=== PATIENT | female | born 1995 | race Hispanic/Latino ===

== ENCOUNTER 2018-04-22 14:14 | Inpatient (IN) | payer OTHER ==
[2018-04-22 15:56] LABS: AMPHETAMINES LEVEL URINE NEGATIVE (NEGATIVE); BARBITURATES URINE NEGATIVE (NEGATIVE); BENZODIAZEPINES URINE NEGATIVE (NEGATIVE); CANNABINOIDS URINE NEGATIVE (NEGATIVE); COCAINE METABOLITE URINE NEGATIVE (NEGATIVE); METHADONE URINE NEGATIVE (NEGATIVE); OPIATES URINE NEGATIVE (NEGATIVE); PHENCYCLIDINE URINE NEGATIVE (NEGATIVE)
[2018-04-22 16:06] LABS: HEMATOCRIT 39.8 % (36.0-47.0); MEAN CORPUSCULAR HEMOGLOBIN 30.6 pg (27.0-33.0); MEAN CORPUSCULAR HGB CONC 35.2 g/dl (32.0-36.5); MEAN CORPUSCULAR VOLUME 86.9 fl (80.0-96.0); PLATELET COUNT, AUTOMATED 335 10^3/uL (150-450); RED BLOOD COUNT 4.58 10^6/uL (4.00-5.40); RED CELL DISTRIBUTION WIDTH 12.6 % (11.5-14.5)
[2018-04-22 16:17] LABS: CONTROL LINE HCG INT CTR LINE PRESENT; HCG, SERUM QUALITATIVE NEGATIVE (NEGATIVE)
[2018-04-22 16:32] LABS: ALBUMIN 3.8 GM/DL (3.2-5.2); ALBUMIN/GLOBULIN RATIO 0.97 (1.00-1.93); ALKALINE PHOSPHATASE 143 U/L (45-117); ALT/SGPT 29 U/L (12-78); ANION GAP 9 MEQ/L (8-16); AST/SGOT 21 U/L (7-37); BILIRUBIN,DIRECT < 0.1 MG/DL (0.0-0.2); BILIRUBIN,TOTAL 0.2 MG/DL (0.2-1.0); BLOOD UREA NITROGEN 6 MG/DL (7-18); CALCIUM LEVEL 8.4 MG/DL (8.5-10.1); CARBON DIOXIDE LEVEL 24 MEQ/L (21-32); CHLORIDE LEVEL 110 MEQ/L (98-107); CREATININE FOR GFR 0.59 MG/DL (0.55-1.30); GLOMERULAR FILTRATION RATE > 60.0 (>60); GLUCOSE, FASTING 89 MG/DL (70-100); POTASSIUM SERUM 3.7 MEQ/L (3.5-5.1); SALICYLATE LEVEL < 1.7 MG/DL (5.0-30.0); SODIUM LEVEL 143 MEQ/L (136-145); TOTAL PROTEIN 7.7 GM/DL (6.4-8.2)
[2018-04-22 16:34] LABS: ACETAMINOPHEN LEVEL < 2.0 UG/ML (10.0-30.0); ETHYL ALCOHOL (ETHANOL) < 0.003 % (0.000-0.010)
[2018-04-22] MEDS ORDERED: ACETAMINOPHEN TAB 650MG DOSE (2X325MG) PO (17:00)
[2018-04-22] MEDS ORDERED: MAALOX 30 ML SUSP *UDC PO (17:00)
[2018-04-22] MEDS ORDERED: traZODone 50 MG TAB PO (17:00)
[2018-04-22] MEDS ORDERED: MOM 30ML SUSPENSION UDC PO (17:00)
[2018-04-23] MEDS: SERTRALINE HCL 50 MG TAB PO (08:42)
[2018-04-23] MEDS ORDERED: hydrOXYzine 25 MG TAB PO (14:00)
[2018-04-23] MEDS: NALTREXONE 50 MG TAB PO (14:14)
[2018-04-24] MEDS: NALTREXONE 50 MG TAB PO (09:20)
[2018-04-24] MEDS: SERTRALINE 100 MG TAB PO (21:14)
[2018-04-25] MEDS: NALTREXONE 50 MG TAB PO (08:31)
[2018-04-25] MEDS ORDERED: ONDANSETRON 4 MG TAB (S0181) PO (09:00)
[2018-04-25] MEDS: SERTRALINE 100 MG TAB PO (20:51)
[2018-04-26] MEDS: NALTREXONE 50 MG TAB PO (09:16)
[2018-04-26] MEDS: SERTRALINE 100 MG TAB PO (20:31)
[2018-04-27] MEDS: NALTREXONE 50 MG TAB PO (08:28)
[2018-04-27] MEDS: SERTRALINE 100 MG TAB PO (21:54)
== END 2018-04-28 07:45 | disposition home or self-care (01) | DRG 882 ==
LOC: M ED 14:14 → M ED INP 16:50 → M PSY 17:56
DX: F43.10 Post-traumatic stress disorder, unspecified (principal); F10.10 Alcohol abuse, uncomplicated; G47.00 Insomnia, unspecified; Z91.410 Personal history of adult physical and sexual abuse; Z79.899 Other long term (current) drug therapy

== ENCOUNTER 2019-02-22 12:25 | Outpatient (CLI) | payer OTHER ==
[~2019-02-22] VITALS: Ht 157.5 cm; Wt 70.7 kg
[~2019-02-22 12:25] MED LIST: ACET1TAB55 PO; HYDR-3363 PO; MELA3TAB49 PO; NALT50TA4 PO; SERT-138 PO; TRAZ1TAB10 PO; ZOFR4TAB14 PO; ZOLO50TA PO; zoloft PO
[2019-02-22] MEDS ORDERED: VITA100T59 PO (12:46)
[2019-02-22] MEDS ORDERED: ZOLO25TA PO (12:46)
[2019-02-22] MEDS ORDERED: PRENTAB9 PO (12:46)
[2019-02-22] MEDS ORDERED: FERR325T3 PO (12:46)
[2019-02-22] MEDS ORDERED: ZOFR4TAB16 PO (12:46)
[2019-02-22] MEDS ORDERED: ZOLO100T PO (12:47)
[2019-02-22 12:49] VITALS: BP 113/65
== END 2019-02-22 14:08 | disposition home or self-care (01) ==
LOC: M LDO 12:25
PROVIDERS: ATTEND Obstetrics & Gynecology
DX: O26.853 Spotting complicating pregnancy, third trimester (principal); O34.61 Maternal care for abnormality of vagina, first trimester; O47.03 False labor before 37 completed weeks of gestation, third trimester; Z3A.37 37 weeks gestation of pregnancy
CPT/HCPCS: 59025; G0378; G0463

== ENCOUNTER 2019-03-09 00:36 | Inpatient (IN) | payer OTHER ==
[~2019-03-09] VITALS: Ht 157.5 cm; Wt 70.9 kg
[2019-03-09] VITALS (38 sets, daily range): BP systolic 101–138; BP diastolic 55–85
[~2019-03-09 00:36] MED LIST changes: +FERR325T3 PO; +PRENTAB9 PO; +VITA100T59 PO; +ZOFR4TAB16 PO; +ZOLO100T PO; +ZOLO25TA PO
[2019-03-09] MEDS ORDERED: LACTATED RINGER'S 1000 ML IV STA (01:20)
[2019-03-09] MEDS ORDERED: PENICILLIN G POTASSIUM IV 5 MU in D5W MINI-BAG PLUS 100 ML IV STA (01:20)
[2019-03-09 01:46] LABS: HEMATOCRIT 38.5 % (36.0-47.0); HEMOGLOBIN 13.3 g/dl (12.0-15.5); MEAN CORPUSCULAR HEMOGLOBIN 30.9 pg (27.0-33.0); MEAN CORPUSCULAR HGB CONC 34.5 g/dl (32.0-36.5); MEAN CORPUSCULAR VOLUME 89.5 fl (80.0-96.0); PLATELET COUNT, AUTOMATED 247 10^3/uL (150-450); WHITE BLOOD COUNT 11.3 10^3/uL (4.0-10.0)
--- NOTE | 2019-03-09 01:47 | HPEPDOC ---
Obstetrical History & Physical General Date of Admission Mar 09, 2019 at 01:29 History of Present Illness 23 yo at 39+6 weeks gestation by LMP of [id number] c/w 8+6 week US on 018 presented to L&D with the complaint of regular, painful contractions that have been worsening over the last couple hours. She denies any vaginal bleeding or leakage of fluid. She endorses excellent movement. 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dr, 325 MG PO DAILY No.137/Iron/Folic Acd ( Vitamin Tablet) 1 Each Tablet, 1 TAB PO DAILY Sertraline Hcl (Zoloft) 100 Mg Tablet, 1 TAB PO DAILY Scheduled PRN Ondansetron HCl (Zofran) 4 Mg Tablet, 1 TAB PO Q6-8HP PRN for nausea/vomiting Physical Examination Physical Examination GENERAL: Alert and oriented times three. ABDOMEN: Gravid and non-tender to touch. FETUS: Is vertex (VTX) by sterile vaginal examination (SVE) EXTREMITIES: No edema. Laboratory Data 24H LABS Laboratory Tests 2 03/09/19 01:31: Serology Scanned Report Hepatitis B Testing Urine Culture: Contaminated Pertinent Laboratoy Data Blood Type: O+ RBC Antibody Screen: Negative HIV: Negative Hepatitis B: Negative Hepatitis C: Unknown Rapid Plasma Reagin: Nonreactive Rubella: Immune Varicella: Immune Chlamydia/Gonorrhea: Negative Group B Streptococcus: Positive Quad Screen Test: Negative Cystic Fibrosis: Negative Glucose Tolerance Test: 106 Anatomy Ultrasound Placenta Location: Anterior Normal Anatomy: Yes Placenta Previa: No Steroid Therapy Steroid Therapy: No Vaginal Examination Dilation: 3 cm Effacement: 90% Station: -2 Cervical Consistency: Soft Cervical Position: Posterior Presentation: Cephalic presentation Position: Vertex (occiput) Assessment Heart Rate (FHR): 150 Variability: Moderate Accelerations: Positive Decelerations: None Tocometer Contractions: Yes Duration: greater than 60 seconds Strength: palpated as moderate Assessment/Plan Assessment 23 yo at 39+6 weeks gestation presented to L&D in early labor. GBS positive. Plan Admit to L&D for expectant management of labor. Will augment as clinically indicated. Apply IV fluids. PCN for GBS prophylaxis. Clear liquid diet. IV analgesia PRN while in latent labor and epidural PRN when in active labor. Anticipate . DO NONA Yu CHRISTOPHER J. DO Mar 09, 2019 01:47
[2019-03-09] MEDS: PENICILLIN G POTASSIUM IV 2.5 MU in APPROPRIATE DILUENT 1 EA IV SCH ×4 (06:03→18:19)
--- NOTE | 2019-03-09 08:02 | IPNPDOC ---
Text Note Date of Service The patient was seen on 03/09/19. NOTE FHT Cat 1, reg painful ctx's Cx //-1/vtx well applied OK for epidural Sessions VS,Rai, I+O VSRai I+O Laboratory Tests 03/09/19 01:38 Red Blood Count 4.30, Mean Corpuscular Volume 89.5, Mean Corpuscular Hemoglobin 30.9, Mean Corpuscular Hemoglobin Concent 34.5, Red Cell Distribution Width 15.9 H Vital Signs Date Time Temp Pulse Resp B/P (MAP) Pulse Ox O2 Delivery O2 Flow Rate FiO2 03/09/19 07:17 97.5 86 18 118/59 (78) I&O- Last 24 Hours up to 6 AM 03/09/19 06:00 Intake Total 510 ml Output Total 125 ml Balance 385 ml SESSIONS,BRIAN Medley MD Mar 09, 2019 08:02
[2019-03-09] MEDS ORDERED: FENTANYL 2MCG/ML ROPIVACAINE 0.2% IN 0.9% NACL 100ML IVBAG As Ordered ONE (08:06)
[2019-03-09] MEDS ORDERED: LR 1,000 ML IV ONE (08:30)
[2019-03-09] MEDS ORDERED: SERTRALINE HCL 50 MG TAB PO SCH (09:00)
[2019-03-09] MEDS: FENTANYL/ROPIVACAINE/NACL BAG 100 ML EPIDURAL SCH ×2 (09:13→18:25)
[2019-03-09] MEDS: LR 1,000 ML IV SCH ×2 (09:44→14:20)
[2019-03-09] MEDS ORDERED: diphenhydrAMINE INJ 50MG/ML VIAL (J1200) IV PRN (09:45)
[2019-03-09] MEDS ORDERED: REFRIGERATOR IV KEYS XX PRN (09:45)
[2019-03-09] MEDS ORDERED: EPIDURAL COMMENT XX SCH (09:45)
[2019-03-09] MEDS ORDERED: ONDANSETRON 4MG/2ML VIAL (J2405) IV PRN (09:45)
[2019-03-09] MEDS ORDERED: LACTATED RINGER'S 1000 ML IV PRN (09:45)
[2019-03-09] MEDS ORDERED: ePHEDrine SULFATE 25 MG/5 ML(5MG/ML) SYRINGE IV PRN (09:45)
[2019-03-09] MEDS ORDERED: EPIDURAL/PCA KEYS XX PRN (09:45)
[2019-03-09] MEDS ORDERED: NALOXONE INJ 0.4 MG/1 ML VIAL (J2310) IV PRN (09:45)
--- NOTE | 2019-03-09 16:52 | IPNPDOC ---
Text Note Date of Service The patient was seen on 03/09/19. NOTE FHT Cat 1, reg ctx's. Received an epidural late AM and cx check by myself at ~1100 was 6 cm, at 1400 was 8 cm. Cx C/C/BBOW/AROM with clear fluid/now +1 station, ROSA Plan on passive descent for 45 min, then start pushing Sessions MD BURCIAGA,Rai, I+O VSRai I+O Laboratory Tests 03/09/19 01:38 Red Blood Count 4.30, Mean Corpuscular Volume 89.5, Mean Corpuscular Hemoglobin 30.9, Mean Corpuscular Hemoglobin Concent 34.5, Red Cell Distribution Width 15.9 H Vital Signs Date Time Temp Pulse Resp B/P (MAP) Pulse Ox O2 Delivery O2 Flow Rate FiO2 03/09/19 13:53 82 111/62 (78) 03/09/19 12:53 98.4 18 I&O- Last 24 Hours up to 6 AM 03/09/19 06:00 Intake Total 510 ml Output Total 125 ml Balance 385 ml MARY,BRIAN Medley MD Mar 09, 2019 16:52
[2019-03-09] MEDS ORDERED: OXYTOCIN 30 UNITS IN 0.9% NaCl 500ML IV BAG (J2590) As Ordered ONE (17:24)
[2019-03-09] MEDS ORDERED: OXYTOCIN DRIP 30 UNITS in APPROPRIATE DILUENT 1 EA IV SCH (20:27)
[2019-03-09] MEDS ORDERED: DIBUCAINE 1% OINTMENT 30GM TOP PRN (20:30)
[2019-03-09] MEDS ORDERED: ACETAMINOPHEN TAB 650MG DOSE (2X325MG) PO PRN (20:30)
[2019-03-09] MEDS ORDERED: RHOGAM 300 MCG (1500 IU) INJ (J2790) IM SCH (20:30)
[2019-03-09] MEDS ORDERED: METOCLOPRAMIDE INJ 10MG/2ML VIAL (J2765) IV PRN (20:30)
[2019-03-09] MEDS ORDERED: MEASLES,MUMPS,RUBELLA VACCINE INJ (MMR-II) (90707) SC SCH (20:30)
--- NOTE | 2019-03-09 20:39 | DNPDOC ---
[facility] Delivery Note Delivery Note DATE OF DELIVERY: [id number] PREDELIVERY DIAGNOSIS: 39 6/7 weeks' gestation and labor. POST DELIVERY DIAGNOSIS: Delivered. PROCEDURE: Spontaneous vaginal delivery CORRAL BOSS: Dr. Hernandez ANESTHESIA: epidural ESTIMATED BLOOD LOSS: 200 mL. FINDINGS: wt pending, male infant, Score 9/9, nuchal cord times 1, loose DELIVERY SUMMARY: Called to room after just over 2 hours pushing, +4, great effort. No delay of the vtx, del'd ROSA to LOT, nuchal easily reduced, no delay of either shoulder, vigorous baby to abd. Cord C/C by FOB. Cord blood. Placenta intact, fundus firm, pit going 999. No lacs to cx/per/vag. Uncomplicated. Ariana HERNANDEZ,BRIAN Medley MD Mar 09, 2019 20:39
[2019-03-09] MEDS: DOCUSATE SODIUM 100 MG CAP PO SCH (22:15)
[2019-03-10] VITALS (11 sets, daily range): BP systolic 100–112; BP diastolic 57–69
[2019-03-10] MEDS ORDERED: MORPHINE 4 MG/ML 1ML VIAL/SYRINGE (J2270) As Ordered ONE (00:15)
--- NOTE | 2019-03-10 00:39 | IPNPDOC ---
Text Note Date of Service The patient was seen on 03/10/19. NOTE Called for a large clot in the toilet and almost syncopal episode. Was slightly "out of it" getting to the bed. U was at U+1 and deviated. Massaged down by the RN and I was called. BP's nl and pulse slight tachy low-100's. Cx/ut sweepdone and a 3 finger sized piece of membranes retrieved. Given 2 mg morphine IVP and waited 5 min, then repeated the sweep with no further tissue/membranes. Slight atony at this point. IM methergine 0.2 mg given and 800 mcg cytotec placed MO. To get a 1 L LR bolus and q 20 min aggressive fundal massage/checks with vitals also. PO methergine series q 4 hrs also. CBC today at 0400. Watching closely. Sessions VS,Rai, I+O VSRai I+O Laboratory Tests 03/09/19 01:38 Red Blood Count 4.30, Mean Corpuscular Volume 89.5, Mean Corpuscular Hemoglobin 30.9, Mean Corpuscular Hemoglobin Concent 34.5, Red Cell Distribution Width 15.9 H Vital Signs Date Time Temp Pulse Resp B/P (MAP) Pulse Ox O2 Delivery O2 Flow Rate FiO2 03/09/19 22:17 98.6 88 18 107/57 (74) I&O- Last 24 Hours up to 6 AM 03/10/19 06:00 Intake Total 3235 ml Output Total 1825 ml Balance 1410 ml SESSIONS,BRIAN Medley MD Mar 10, 2019 00:39
[2019-03-10] MEDS ORDERED: MORPHINE 4 MG/ML 1ML VIAL/SYRINGE (J2270) IV ONE (00:45)
[2019-03-10] MEDS ORDERED: LR 1,000 ML IV ONE (00:45)
[2019-03-10] MEDS ORDERED: METHYLERGONOVINE MALEATE 0.2 MG/ML VIAL (J2210) IM ONE (00:45)
[2019-03-10] MEDS ORDERED: miSOPROStol 200 MCG TAB (S0191) PR ONE (00:45)
[2019-03-10] MEDS ORDERED: OXYTOCIN DRIP 30 UNITS in APPROPRIATE DILUENT 1 EA IV ONE (01:45)
[2019-03-10 04:01] LABS: HEMATOCRIT 33.6 % (36.0-47.0); HEMOGLOBIN 11.5 g/dl (12.0-15.5); MEAN CORPUSCULAR HEMOGLOBIN 31.6 pg (27.0-33.0); MEAN CORPUSCULAR HGB CONC 34.2 g/dl (32.0-36.5); MEAN CORPUSCULAR VOLUME 92.3 fl (80.0-96.0); PLATELET COUNT, AUTOMATED 210 10^3/uL (150-450); RED BLOOD COUNT 3.64 10^6/uL (4.00-5.40); WHITE BLOOD COUNT 19.2 10^3/uL (4.0-10.0)
--- NOTE | 2019-03-10 06:20 | IPNPDOC ---
Text Note Date of Service The patient was seen on 03/10/19. NOTE PPD1 States feeling well, pain controlled with prescribed meds. Baby bonding and feeding well. No heavy VB since MN episode, see prior note. Lochia slowing. Ambulatory. Tolerating PO without issues. Voiding spont. No CP/LP/SOB. Vitals reviewed closely and also spoke with RN caring for her in the direct hours after her PPH/tissue removal (trailing membranes). VSSAF NAD A&O LE no C/C/E Ut at U-2, firm 0400 CBC: HCT 33.6, PLT 210 a/p: Doing well. Cont routine care. D/C likely tomorrow. PO methergine series to be finished tonight. Sessions VSRai, I+O VSRai, I+O Laboratory Tests 03/10/19 03:55 Red Blood Count 3.64 L, Mean Corpuscular Volume 92.3, Mean Corpuscular Hemoglobin 31.6, Mean Corpuscular Hemoglobin Concent 34.2, Red Cell Distribution Width 16.1 H Vital Signs Date Time Temp Pulse Resp B/P (MAP) Pulse Ox O2 Delivery O2 Flow Rate FiO2 03/10/19 04:16 84 18 109/65 (80) 03/10/19 02:00 97.8 100 I&O- Last 24 Hours up to 6 AM 03/10/19 06:00 Intake Total 3235 ml Output Total 2325 ml Balance 910 ml SESSIONS,BRIAN Medley MD Mar 10, 2019 06:20
[2019-03-10] MEDS ORDERED: medroxyPROGESTERone ACET IM SUSP 150 MG/ML VIAL (J1050) IM ONE (06:30)
[2019-03-10] MEDS: METHYLERGONOVINE MALEATE 0.2 MG TAB PO SCH ×5 (07:21→20:52)
[2019-03-10] MEDS: IBUPROFEN 800 MG TAB PO PRN ×2 (07:26→17:27)
[2019-03-10] MEDS: DOCUSATE SODIUM 100 MG CAP PO SCH ×2 (08:00→20:52)
[2019-03-10] MEDS: PRENATAL VITAMINS CHEWABLE TABLET PO SCH (08:00)
[2019-03-11] MEDS: METHYLERGONOVINE MALEATE 0.2 MG TAB PO SCH (01:26)
[2019-03-11 06:00] VITALS: BP 102/68
[2019-03-11] MEDS ORDERED: medroxyPROGESTERone ACET IM SUSP 150 MG/ML VIAL (J1050) IM ONE (06:30)
[2019-03-11] MEDS ORDERED: IBUP80TA PO (07:33)
[2019-03-11] MEDS ORDERED: SERT-155 PO (07:33)
[2019-03-11] MEDS ORDERED: DIBU10OI TOP (07:33)
[2019-03-11] MEDS ORDERED: PRENCHW PO (07:33)
[2019-03-11] MEDS ORDERED: COLA100C5 PO (07:33)
[2019-03-11] MEDS: DOCUSATE SODIUM 100 MG CAP PO SCH (08:51)
[2019-03-11] MEDS: IBUPROFEN 800 MG TAB PO PRN (08:51)
[2019-03-11] MEDS: PRENATAL VITAMINS CHEWABLE TABLET PO SCH (08:52)
[2019-03-11] MEDS ORDERED: SERTRALINE HCL 50 MG TAB PO SCH (09:00)
== END 2019-03-11 11:58 | disposition home or self-care (01) | DRG 807 ==
LOC: M LDO 00:36 → M LDI 01:29 → M OBS 22:01
PROVIDERS: ADMIT Obstetrics & Gynecology; ATTEND Obstetrics & Gynecology
PROC: 10E0XZZ Delivery of Products of Conception, External Approach (ICD-10-PCS; principal; 2019-03-09)
DX: O99.824 Streptococcus B carrier state complicating childbirth (principal); Z37.0 Single live birth; O69.82X0 Labor and delivery complicated by other cord entanglement, without compression, not applicable or unspecified; Z3A.39 39 weeks gestation of pregnancy; O99.02 Anemia complicating childbirth; D64.9 Anemia, unspecified; O69.81X0 Labor and delivery complicated by cord around neck, without compression, not applicable or unspecified

== ENCOUNTER → 2019-09-08 | Outpatient (CLI) | payer OTHER ==
[~2019-09-08] MED LIST changes: +COLA100C5 PO; +DIBU10OI TOP; +IBUP80TA PO; +PRENCHW PO; +SERT50TA29 PO
== END ==
LOC: M LAB 12:08
PROVIDERS: ATTEND Obstetrics & Gynecology
DX: Z32.00 Encounter for pregnancy test, result unknown (principal)

== ENCOUNTER → 2019-09-10 | Outpatient (CLI) | payer OTHER | LOC: M LAB 12:13 | PROVIDERS: ATTEND Obstetrics & Gynecology | DX: Z32.00 Encounter for pregnancy test, result unknown (principal) ==

== ENCOUNTER 2019-10-01 14:03 | Emergency (ER) | payer OTHER ==
[~2019-10-01] VITALS: Ht 154.9 cm; Wt 74.8 kg
[2019-10-01 15:08] LABS: BASO # 0.1 10^3/uL (0.0-0.2); BASO % 0.6 % (0.0-1.0); EOS # 0.3 10^3/uL (0.0-0.5); EOS % 2.9 % (0.0-3.0); HEMATOCRIT 40.5 % (36.0-47.0); HEMOGLOBIN 13.5 g/dl (12.0-15.5); LYMPH # 1.4 10^3/uL (1.5-5.0); LYMPH % 13.2 % (24.0-44.0); MEAN CORPUSCULAR HEMOGLOBIN 28.7 pg (27.0-33.0); MEAN CORPUSCULAR HGB CONC 33.3 g/dl (32.0-36.5); MEAN CORPUSCULAR VOLUME 86.2 fl (80.0-96.0); MONO # 0.5 10^3/uL (0.0-0.8); MONO % 4.7 % (0.0-5.0); NEUTROPHILS # 8.5 10^3/uL (1.5-8.5); NEUTROPHILS % 78.3 % (36.0-66.0); PLATELET COUNT, AUTOMATED 314 10^3/uL (150-450); WHITE BLOOD COUNT 10.9 10^3/uL (4.0-10.0)
[2019-10-01 15:35] LABS: BLOOD UREA NITROGEN 8 MG/DL (7-18); CALCIUM LEVEL 8.8 MG/DL (8.5-10.1); CARBON DIOXIDE LEVEL 25 MEQ/L (21-32); CHLORIDE LEVEL 108 MEQ/L (98-107); CREATININE FOR GFR 0.59 MG/DL (0.55-1.30); GLOMERULAR FILTRATION RATE > 60.0 (>60); GLUCOSE, FASTING 89 MG/DL (70-100); POTASSIUM SERUM 3.3 MEQ/L (3.5-5.1); SODIUM LEVEL 141 MEQ/L (136-145)
[2019-10-01 16:03] LABS: HCG, SERUM QUANTITATIVE 8 MIU/ML
--- NOTE | 2019-10-01 17:05 | REP ---
First trimester obstetric ultrasound for vaginal bleeding, emergency room request: The studies performed transabdominal, endovaginal and Doppler ultrasound assessment: The bladder is adequately distended. The uterus is anteverted and normal size measuring 6.7 x 4.2 x 5.3 cm. The endometrium is not thickened measuring up to 10 mm. There is a tiny 3 x 4 mm cyst-like structure in the endometrial canal, nonspecific, endometrial cyst versus very early gestational sac. There is no pole. The right ovary measures 2.5 x 1.4 x 1.4 cm. Left ovary measures 3.1 x 1.5 x 2.9 cm. The ovaries are normal size. With Doppler assessment there is vascular flow in both ovaries. There is no free fluid in the pelvis. Along the posterior inferior bladder wall. There is focal wall thickening. This is nonspecific and could represent cystitis or neoplasm. Impression: There is a tiny cyst in the endometrial canal, nonspecific, endometrial cyst versus very early gestational sac. There is focal bladder wall thickening posterior inferiorly, nonspecific, cystitis versus neoplasm. Electronically Signed by Lino Crain MD 10/01/2019 04:57 P
[2019-10-01 17:32] VITALS: BP 108/66
--- NOTE | 2019-10-03 09:06 | ED PDOC ---
Post-Departure Follow-Up ft drum fp and ft drum ob faxed formal report ofm pelvic us for fu Ramon Brito MD Oct 03, 2019 09:06
== END 2019-10-01 17:34 | disposition home or self-care (01) ==
LOC: M ED 14:03
DX: N92.0 Excessive and frequent menstruation with regular cycle (principal)

== ENCOUNTER 2021-01-30 15:33 | Inpatient (IN) | payer OTHER ==
[~2021-01-30] VITALS: Ht 154.9 cm; Wt 77.8 kg
[2021-01-30] VITALS (21 sets, daily range): BP systolic 109–137; BP diastolic 54–85
[~2021-01-30 15:33] MED LIST changes: -DIBU10OI TOP; +DIBU28OI2 TOP
[2021-01-30] MEDS ORDERED: LACTATED RINGER'S 1000 ML IV STA (15:57)
[2021-01-30] MEDS ORDERED: OXYTOCIN DRIP 30 UNITS in IV 1 EA IV PRN (16:00)
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
[2021-01-30 16:36] LABS: HEMATOCRIT 36.4 % (36.0-47.0); HEMOGLOBIN 11.7 g/dl (12.0-15.5); MEAN CORPUSCULAR HEMOGLOBIN 26.5 pg (27.0-33.0); MEAN CORPUSCULAR HGB CONC 32.1 g/dl (32.0-36.5); MEAN CORPUSCULAR VOLUME 82.5 fl (80.0-96.0); PLATELET COUNT, AUTOMATED 291 10^3/uL (150-450); RED BLOOD COUNT 4.41 10^6/uL (4.00-5.40); WHITE BLOOD COUNT 10.5 10^3/uL (4.0-10.0)
[2021-01-30] MEDS: LR 1,000 ML IV SCH ×2 (17:43→21:25)
[2021-01-30] MEDS ORDERED: FENTANYL 2MCG/ML ROPIVACAINE 0.2% IN 0.9% NACL 100ML IVBAG As Ordered ONE (17:50)
[2021-01-30] MEDS ORDERED: EPIDURAL COMMENT XX SCH (18:20)
[2021-01-30] MEDS ORDERED: REFRIGERATOR IV KEYS XX PRN (18:20)
[2021-01-30] MEDS ORDERED: diphenhydrAMINE 50MG/ML VIAL (J1200) IV PRN (18:20)
[2021-01-30] MEDS ORDERED: ONDANSETRON 4MG/2ML VIAL IV PRN (18:20)
[2021-01-30] MEDS ORDERED: FENTANYL/ROPIVACAINE/NACL BAG 100 ML EPIDURAL SCH (18:20)
[2021-01-30] MEDS ORDERED: LACTATED RINGER'S 1000 ML IV PRN (18:20)
[2021-01-30] MEDS ORDERED: NALOXONE INJ 0.4MG/1ML VIAL (J2310 PER 1MG) IV PRN (18:20)
[2021-01-30] MEDS ORDERED: ePHEDrine SULFATE 25 MG/5 ML(5MG/ML) SYRINGE IV PRN (18:20)
[2021-01-30] MEDS ORDERED: EPIDURAL/PCA KEYS XX PRN (18:20)
[2021-01-30] MEDS ORDERED: OXYTOCIN 30 UNITS IN 0.9% NaCl 500ML IV BAG (J2590) As Ordered ONE (18:56)
--- NOTE | 2021-01-30 20:08 | IPNPDOC ---
Obstetrical Progress Note Date of Service January 30, 2021 Subjective To room for interval assessment. Patient has epidural and is feeling more pressure. Otherwise no complaints. Objective Vital Signs Date Time Temp Pulse Resp B/P (MAP) Pulse Ox O2 Delivery O2 Flow Rate FiO2 01/30/21 19:22 98.6 01/30/21 19:15 82 18 128/70 (89) 01/30/21 15:53 99 Assessment Heart Rate (FHR): 120 Variability: Moderate Accelerations: Positive Decelerations: None Heart Rate Tracing: Category I Tocometer Contractions: Yes Frequency: regular Sterile Vaginal Examination Dilation: 6 cm Effacement (%): 90% Station: -1 Cervical Consistency: Soft Cervical Position: Middle Postion/Presentation: Cephalic presentation (by exam) Assessment and Plan Status: Reassuring Anticipate: Vaginal Delivery Additional Comments CAT I tracing, reactive, reassuring. Regular contractions. SVE changed from 5cm to 6/90/-1. AROM performed, clear. Baby in MESERET position. Plan for reassessment in 2h or sooner if clinically indicated. NAPOLEON GLORIA DO January 30, 2021 20:08
[2021-01-30] MEDS ORDERED: ceFAZolin 2 GM/D5W 50 ML IV BAG (J0690 PER 500MG) As Ordered ONE (21:20)
[2021-01-30] MEDS ORDERED: DIBUCAINE 1% OINTMENT 30GM TOP PRN (21:30)
[2021-01-30] MEDS ORDERED: ACETAMINOPHEN 500 MG TAB PO PRN (21:30)
[2021-01-30] MEDS ORDERED: ceFAZolin SOD 2 GM in IV 1 EA IV ONE (21:30)
[2021-01-30] MEDS ORDERED: OXYTOCIN DRIP 30 UNITS in IV 1 EA IV SCH (21:30)
[2021-01-30] MEDS ORDERED: IBUPROFEN 600MG TAB PO PRN (21:30)
[2021-01-30] MEDS ORDERED: DOCUSATE SODIUM 100MG CAPSULE PO PRN (21:30)
[2021-01-30] MEDS ORDERED: ACETAMINOPHEN TAB 650MG DOSE (2X325MG) PO PRN (21:30)
--- NOTE | 2021-01-30 21:36 | DNPDOC ---
[facility] Delivery Note Delivery Note DATE OF DELIVERY: 01/30/21 PREDELIVERY DIAGNOSIS: 40+0/7 weeks' gestation and labor. POST DELIVERY DIAGNOSIS: Delivered. Retained placental membranes. 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 Thanh Gloria DO ANESTHESIA: epidural ESTIMATED BLOOD LOSS: 100 mL. FINDINGS: 3060g, Score 8/9, nuchal cord times 0. DELIVERY SUMMARY: Ms. Valdez is a 25 yo at 40w0d with THIERRY of 30 JAN 2021 who presented to L&D from the clinic for labor. She progressed without augmentation to C/C/+3 and with good maternal effort delivered the head in the ROSA position followed by the right shoulder without difficulty. Per the request of the parents the father of the baby delivered the corpus. The baby had good tone, movement, and cry. Cord clamping was delayed 60s. Cord blood and gasses were obtained. The placenta delivered spontaneously with gentle downward traction. When attempting to deliver placental trailing membranes they from the placenta and required manual extraction. 2g of ancef was administered for prophylaxis. The uterus was firm and bleeding was scant. There were no lacerations. The sponge, lap, and needle counts were correct. There were no complications. THANH GLOIRA DO January 30, 2021 21:36
[2021-01-30 21:45] LABS: CORD GAS ABE A -6.9; CORD GAS ABE V -3.1; CORD GAS HCO3 A 19.8 MEQ/L; CORD GAS O2 SAT A 59.7 %; CORD GAS O2 SAT V 80.2 %; CORD GAS PCO2 A 44.3 mmHg; CORD GAS PCO2 V 34.9 mmHg; CORD GAS PH A 7.269 UNITS; CORD GAS PH V 7.397 UNITS; CORD GAS PO2 A 27.8 mmHg; CORD GAS PO2 V 36.3 mmHg; CORD GAS SBC V 21.5 MEQ/L; CORD GAS TCO2 A 21.2 MEQ/L; CORD GAS TCO2 V 22.1 MEQ/L
[2021-01-31] MEDS: IBUPROFEN 800 MG TAB PO PRN ×2 (05:33→17:14)
[2021-01-31 06:00] VITALS: BP 127/69
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
[2021-01-31] MEDS ORDERED: medroxyPROGESTERone ACET IM SUSP 150 MG/ML VIAL (J1050) IM ONE (07:15)
[2021-01-31] MEDS: PRENATAL VITAMINS CHEWABLE TABLET PO SCH (09:52)
[2021-01-31 18:00] VITALS: BP 115/67
[2021-02-01] MEDS: IBUPROFEN 800 MG TAB PO PRN (05:23)
[2021-02-01 05:50] VITALS: BP 109/55
[2021-02-01] MEDS ORDERED: DIBU28OI2 TOP (06:57)
[2021-02-01] MEDS ORDERED: IBUP-1022 PO (06:57)
[2021-02-01] MEDS ORDERED: DOK1CAP7 PO (06:57)
[2021-02-01] MEDS: PRENATAL VITAMINS CHEWABLE TABLET PO SCH (08:32)
[2021-02-01] MEDS ORDERED: medroxyPROGESTERone ACET IM SUSP 150 MG/ML VIAL (J1050) IM SCH (09:00)
--- NOTE | 2021-02-01 13:20 | DSES ---
DISCHARGE SUMMARY DATE OF ADMISSION: 01/30/2021 DATE OF DISCHARGE: 02/01/2021 This lady is a 25-year-old 3 now para 2 admitted with contractions at 40 weeks of gestation. Had an epidural in place with spontaneous vaginal delivery of a male infant 6 pounds 12 ounces (3060 gram). Apgars of 8 and 9 at one and five minutes respectively. Arterial pH 7.26, base excess -6.9; venous pH 7.39, base excess -3.1. On her discharge day, we discussed phlebitis, cystitis, mastitis, endometritis, cellulitis, diet, exercise, pain management and perineal care. Her admitting hemoglobin was 11.7, hematocrit 36.4, and platelets 291,000. Her vital signs on discharge blood pressure 109/55, respirations 16, pulse 71, temperature 97.8. The rest of the examination was unremarkable. Normocephalic, atraumatic. Neck with full range of motion. Pupils equal and reactive to light. Distal pulses symmetric. No evidence of DVT, PE, or superficial phlebitis. Chest clear bilaterally to the bases with no wheezes or rhonchi. No CVA tenderness. Abdomen soft, four quadrant bowel sounds are noted. Uterus 2 below and lochia is moderate. No rashes, lesions, or pruritus. No arthralgias or myalgias. No complaint of joint pain. No complaint of cough, wheeze, shortness of breath, or dyspnea on exertion. No nausea, vomiting, diarrhea, or constipation. No urgency or frequency. Passing gas. Voiding well. Has had a bowel movement. DISCHARGE PLAN: set up mechanic medications at [place]. Six week check at patient was discharged improved.
== END 2021-02-01 11:55 | disposition home or self-care (01) | DRG 807 ==
LOC: M LDI 15:33 → M OBS 23:19
PROVIDERS: ADMIT Registered Nurse Maternal Newborn; ATTEND Registered Nurse Maternal Newborn
PROC: 10D17Z9 Manual Extraction of Products of Conception, Retained, Via Natural or Artificial Opening (ICD-10-PCS; principal; 2021-01-30)
PROC: 10E0XZZ Delivery of Products of Conception, External Approach (ICD-10-PCS; 2021-01-30)
PROC: 10907ZC Drainage of Amniotic Fluid, Therapeutic from Products of Conception, Via Natural or Artificial Opening (ICD-10-PCS; 2021-01-30)
DX: O48.0 Post-term pregnancy (principal); Z37.0 Single live birth; Z3A.40 40 weeks gestation of pregnancy